=== PATIENT | male | born 1960 | race Caucasian/White ===

== ENCOUNTER 2017-06-13 01:46 | Emergency (ER) | payer MEDICAID ==
[2013-05-15 15:49] VITALS: BMI 24.4
[~2017-06-13 01:46] MED LIST: BACTRIM DS TABL1 TAB PO; COLACE100 MG PO; FLOMAX0.4 MG PO; NORCO 5/325 TAB1 TA1; NORCO 5/325 TAB1 TA1 PO; PHENAZOPYRIDIN200 MG PO; PRILOSEC20 MG PO
[2017-06-13 02:47] LABS: BASOPHILS 0.1 % (0-2); EOSINOPHILS 0.3 % (0-7); HEMATOCRIT 43.2 % (42.0-54.0); HEMOGLOBIN 15.7 g/dL (13.5-17.5); IMMATURE GRANULOCYTES 0.3 % (0-5); LYMPHOCYTES 11.3 % (15-50); MCH 31.6 pg (26.0-34.0); MCHC 36.3 g/dL (31.0-37.0); MCV 86.9 fL (80.0-100.0); MEAN PLATELET VOLUME 9.6 fL (7.4-10.4); MONOCYTES 9.3 % (2-11); NEUTROPHILS 78.7 % (40-80); RBC 4.97 10x6/uL (4.20-6.10); RDW 12.5 % (11.5-14.5); WBC 7.5 10x3/uL (4.8-10.8)
[2017-06-13 02:48] LABS: PLATELET COUNT 177 10x3/uL (130-400)
[2017-06-13 03:02] LABS: ALBUMIN 4.1 g/dL (3.4-5.0); ANION GAP 16.5 mmol/L (8-16); BILIRUBIN - TOTAL 0.68 mg/dL (0.2-1.3); CARBON DIOXIDE 22.2 mmol/L (21.0-32.0); CREATININE - SERUM 1.1 mg/dL (0.6-1.3); POTASSIUM - SERUM 3.7 mmol/L (3.5-5.1); PROTEIN - SERUM 7.6 g/dL (6.4-8.2)
[2017-06-13 03:41] LABS: APPEARANCE HAZY (CLEAR); BACTERIA NONE SEEN /hpf (NONE SEEN); BILIRUBIN NEGATIVE (NEGATIVE); COLOR YELLOW (YELLOW); EPITHELIAL CELLS RARE /hpf (0-5); GLUCOSE NEGATIVE (NEGATIVE); KETONE NEGATIVE (NEGATIVE); NITRITE NEGATIVE (NEGATIVE); PROTEIN TRACE mg/dL (NEGATIVE); RED CELLS - URINE 25-50 /hpf (0-5); SPECIFIC GRAVITY 1.015 (1.005-1.020); URIC ACID CRYSTALS 0-5 /hpf (NONE SEEN); UROBILINOGEN NORMAL (NORMAL); WHITE CELLS - URINE RARE /hpf (0-5)
== END 2017-06-13 04:39 | disposition home or self-care (01) ==
LOC: D.ER 01:46
PROVIDERS: Family Medicine
DX: N20.1 Calculus of ureter (principal)

== ENCOUNTER 2018-02-23 17:33 | Emergency (ER) | payer MEDICAID ==
[~2018-02-23] VITALS: Ht 193 cm; Wt 97.5 kg
[2018-02-23 17:38] VITALS: Ht 193 cm; Wt 97.5 kg
[2018-02-23 18:20] LABS: APPEARANCE CLEAR (CLEAR); BILIRUBIN NEGATIVE (NEGATIVE); COLOR YELLOW (YELLOW); GLUCOSE NEGATIVE (NEGATIVE); KETONE NEGATIVE (NEGATIVE); NITRITE NEGATIVE (NEGATIVE); PROTEIN NEGATIVE (NEGATIVE); UROBILINOGEN NORMAL (NORMAL)
[2018-02-23 18:21] LABS: WHITE CELLS - URINE OCC /hpf (0-5)
[2018-02-23 18:22] LABS: BACTERIA FEW /hpf (NONE SEEN)
[2018-02-23 18:46] LABS: BASOPHILS 0.3 % (0-2); EOSINOPHILS 0.3 % (0-7); HEMATOCRIT 42.4 % (42.0-54.0); HEMOGLOBIN 15.2 g/dL (13.5-17.5); IMMATURE GRANULOCYTES 0.3 % (0-5); LYMPHOCYTES 9.9 % (15-50); MCH 31.6 pg (26.0-34.0); MCHC 35.8 g/dL (31.0-37.0); MCV 88.1 fL (80.0-100.0); MEAN PLATELET VOLUME 9.6 fL (7.4-10.4); MONOCYTES 6.8 % (2-11); NEUTROPHILS 82.4 % (40-80); PLATELET COUNT 178 10x3/uL (130-400); RBC 4.81 10x6/uL (4.20-6.10); RDW 12.5 % (11.5-14.5); WBC 7.5 10x3/uL (4.8-10.8)
[2018-02-23 18:53] LABS: CALC OSMOLALITY 284 mosm/kg (275-300); CARBON DIOXIDE 28.5 mmol/L (21.0-32.0); CHLORIDE - SERUM 106 mmol/L (98-107); GLUCOSE 107 mg/dL (74-106); SODIUM 142 mmol/L (136-145); UREA NITROGEN 18 mg/dL (7-18); eGFR NON AFRICAN AMERICAN 82 mL/min (90-120)
[2018-02-23] MEDS ORDERED: FLOMAX0.4 MG PO (19:03)
[2018-02-23] MEDS ORDERED: HYDROCODON-ACE1 EAC7 PO (19:03)
[2018-02-23 19:29] VITALS: BP 172/107
== END 2018-02-23 19:31 | disposition home or self-care (01) ==
LOC: D.ER 17:33
PROVIDERS: Family Medicine
DX: N20.0 Calculus of kidney (principal); R31.9 Hematuria, unspecified

== ENCOUNTER 2018-06-05 00:46 | Emergency (ER) | payer MEDICAID ==
[~2018-06-05] VITALS: Ht 193 cm; Wt 95.5 kg
[~2018-06-05 00:46] MED LIST changes: +HYDROCODON-ACE1 EAC7 PO
[2018-06-05 00:58] VITALS: Ht 193 cm; Wt 95.5 kg
[2018-06-05] MEDS ORDERED: CATAPRES0.1 MG PO (01:00)
[2018-06-05] MEDS ORDERED: LISINOPRIL10 MG PO (01:00)
[2018-06-05 01:52] LABS: BASOPHILS 0.1 % (0-2); EOSINOPHILS 0.3 % (0-7); HEMATOCRIT 41.5 % (42.0-54.0); HEMOGLOBIN 15.4 g/dL (13.5-17.5); IMMATURE GRANULOCYTES 0.1 % (0-5); LYMPHOCYTES 14.4 % (15-50); MCH 31.8 pg (26.0-34.0); MCHC 37.1 g/dL (31.0-37.0); MCV 85.7 fL (80.0-100.0); MEAN PLATELET VOLUME 9.8 fL (7.4-10.4); MONOCYTES 7.3 % (2-11); NEUTROPHILS 77.8 % (40-80); PLATELET COUNT 151 10x3/uL (130-400); RBC 4.84 10x6/uL (4.20-6.10); RDW 12.1 % (11.5-14.5)
[2018-06-05] MEDS ORDERED: NORCO 10-325 TA1 TAB PO (02:07)
[2018-06-05] MEDS ORDERED: FLOMAX0.4 MG PO (02:07)
[2018-06-05 02:14] LABS: ALBUMIN 4.1 g/dL (3.4-5.0); ALKALINE PHOSPHATASE 73 U/L (46-116); ALT (SGPT) 25 U/L (10-68); BILIRUBIN - TOTAL 0.59 mg/dL (0.2-1.3); CALC OSMOLALITY 283 mosm/kg (275-300); CALCIUM 9.4 mg/dL (8.5-10.1); CARBON DIOXIDE 23.7 mmol/L (21.0-32.0); CHLORIDE - SERUM 103 mmol/L (98-107); GLUCOSE 128 mg/dL (74-106); POTASSIUM - SERUM 3.7 mmol/L (3.5-5.1); PROTEIN - SERUM 7.5 g/dL (6.4-8.2); SODIUM 140 mmol/L (136-145); UREA NITROGEN 20 mg/dL (7-18); eGFR NON AFRICAN AMERICAN 82 mL/min (90-120)
[2018-06-05 07:08] VITALS: BP 147/99
== END 2018-06-05 07:10 | disposition home or self-care (01) ==
LOC: D.ER 00:46
PROVIDERS: Family Medicine
DX: N13.2 Hydronephrosis with renal and ureteral calculous obstruction (principal); I10 Essential (primary) hypertension

== ENCOUNTER 2018-08-13 06:01 | Emergency (ER) | payer MEDICAID ==
[~2018-08-13] VITALS: Ht 193 cm; Wt 97.7 kg
[~2018-08-13 06:01] MED LIST changes: +CATAPRES0.1 MG PO; +LISINOPRIL10 MG PO; +NORCO 10-325 TA1 TAB PO
[2018-08-13 06:12] VITALS: Ht 193 cm; Wt 97.7 kg
[2018-08-13 06:36] LABS: COLOR YELLOW (YELLOW)
[2018-08-13 06:37] LABS: APPEARANCE CLEAR (CLEAR); BILIRUBIN NEGATIVE (NEGATIVE); GLUCOSE NEGATIVE (NEGATIVE); KETONE NEGATIVE (NEGATIVE); NITRITE NEGATIVE (NEGATIVE); PROTEIN NEGATIVE (NEGATIVE); SPECIFIC GRAVITY 1.015 (1.005-1.020); UROBILINOGEN NORMAL (NORMAL); WHITE CELLS - URINE NSEEN /hpf (0-5)
[2018-08-13] MEDS ORDERED: FLOMAX0.4 MG PO (07:41)
[2018-08-13 08:07] VITALS: BP 142/60
== END 2018-08-13 08:08 | disposition home or self-care (01) ==
LOC: D.ER 06:01
PROVIDERS: Family Medicine
DX: N20.0 Calculus of kidney (principal); N20.1 Calculus of ureter; I10 Essential (primary) hypertension

== ENCOUNTER 2018-10-20 10:47 | Emergency (ER) | payer MEDICAID ==
[~2018-10-20] VITALS: Ht 193 cm; Wt 97.7 kg
[2018-10-20 11:08] VITALS: Ht 193 cm; Wt 97.7 kg
[2018-10-20] MEDS ORDERED: COZAAR25 MG PO (11:49)
[2018-10-20] MEDS ORDERED: KRILL OIL 1,001 EAC1 PO (11:51)
[2018-10-20] MEDS ORDERED: IBUPROFEN600 MG PO (11:51)
[2018-10-20 11:54] LABS: HEMATOCRIT 42.5 % (42.0-54.0); HEMOGLOBIN 15.5 g/dL (13.5-17.5); LYMPHOCYTES 18.7 % (15-50); MCH 31.4 pg (26.0-34.0); MCHC 36.5 g/dL (31.0-37.0); MEAN PLATELET VOLUME 9.3 fL (7.4-10.4); NEUTROPHILS 73.7 % (40-80); RBC 4.94 10x6/uL (4.20-6.10); RDW 12.6 % (11.5-14.5); WBC 5.7 10x3/uL (4.8-10.8)
[2018-10-20] MEDS ORDERED: BAYER CHEWABLE81 MG PO (11:54)
[2018-10-20 11:58] LABS: PLATELET COUNT 192 10x3/uL (130-400)
[2018-10-20] MEDS ORDERED: LIDOCAINE50 GM TOPICAL (13:16)
[2018-10-20] MEDS ORDERED: TORADOL10 MG PO (13:16)
[2018-10-20 13:40] VITALS: BP 146/98
== END 2018-10-20 13:36 | disposition home or self-care (01) ==
LOC: D.ER 10:47
PROVIDERS: Emergency Medicine
DX: K64.5 Perianal venous thrombosis (principal)

== ENCOUNTER 2019-09-14 07:18 | Emergency (ER) | payer OTHER ==
[~2019-09-14] VITALS: Ht 193 cm; Wt 97.7 kg
[~2019-09-14 07:18] MED LIST changes: +BAYER CHEWABLE81 MG PO; +COZAAR25 MG PO; +IBUPROFEN600 MG PO; +KRILL OIL 1,001 EAC1 PO; +LIDOCAINE50 GM TOPICAL; +TORADOL10 MG PO
[2019-09-14 07:24] VITALS: Ht 193 cm; Wt 97.7 kg
[2019-09-14] MEDS ORDERED: METOPROLOL TART25 MG PO (07:26)
[2019-09-14 08:43] LABS: APPEARANCE CLOUDY (CLEAR); BACTERIA FEW /hpf (NEGATIVE); BILIRUBIN NEGATIVE (NEGATIVE); COLOR DK YELLOW (YELLOW); EPITHELIAL CELLS 0-5 /hpf (0-5); GLUCOSE NEGATIVE (NEGATIVE); KETONE SMALL mg/dL (NEGATIVE); MUCUS <1+ /lpf (NONE SEEN); NITRITE NEGATIVE (NEGATIVE); PROTEIN TRACE mg/dL (NEGATIVE); RED CELLS - URINE 25-50 /hpf (0-5); WHITE CELLS - URINE RARE /hpf (NEGATIVE)
[2019-09-14] MEDS ORDERED: HYDROCODON-ACE1 EAC2 PO (09:16)
[2019-09-14] MEDS ORDERED: FLOMAX0.4 MG PO (09:16)
[2019-09-14 10:04] VITALS: BP 135/87
[2019-09-14] MEDS ORDERED: TORADOL10 MG PO (15:01)
== END 2019-09-14 10:05 | disposition home or self-care (01) ==
LOC: D.ER 07:18
PROVIDERS: Emergency Medicine
DX: R10.9 Unspecified abdominal pain (principal); N23 Unspecified renal colic; I10 Essential (primary) hypertension; Z87.442 Personal history of urinary calculi

== ENCOUNTER 2019-09-14 13:34 | Emergency (ER) | payer OTHER ==
[~2019-09-14] VITALS: Ht 193 cm; Wt 97.7 kg
[~2019-09-14 13:34] MED LIST changes: +HYDROCODON-ACE1 EAC2 PO; +METOPROLOL TART25 MG PO
[2019-09-14 13:39] VITALS: Ht 193 cm; Wt 97.7 kg
[2019-09-14] MEDS ORDERED: TORADOL10 MG PO (15:01)
[2019-09-14 15:10] VITALS: BP 139/83
== END 2019-09-14 15:11 | disposition home or self-care (01) ==
LOC: D.ER 13:34
DX: N20.0 Calculus of kidney (principal); R10.9 Unspecified abdominal pain; I10 Essential (primary) hypertension

== ENCOUNTER 2021-03-13 11:02 | Emergency (ER) | payer OTHER ==
[~2021-03-13] VITALS: Ht 193 cm; Wt 95.5 kg
[2021-03-13 11:10] VITALS: Ht 193 cm; Wt 95.5 kg
[2021-03-13 11:15] VITALS: BP 192/96
[2021-03-13 11:56] LABS: BASOPHILS 0.3 % (0-2); EOSINOPHILS 0.1 % (0-7); HEMATOCRIT 41.7 % (42.0-54.0); HEMOGLOBIN 14.6 g/dL (13.5-17.5); LYMPHOCYTES 5.3 % (15-50); MCH 31.1 pg (26.0-34.0); MCV 88.9 fL (80.0-100.0); MEAN PLATELET VOLUME 7.6 fL (7.4-10.4); MONOCYTES 5.7 % (2-11); NEUTROPHILS 88.6 % (40-80); PLATELET COUNT 171 10x3/uL (130-400); RBC 4.69 10x6/uL (4.20-6.10); RDW 13.2 % (11.5-14.5); WBC 9.3 10x3/uL (4.8-10.8)
[2021-03-13 11:58] LABS: ANION GAP 16.1 mmol/L (8-16); CALCIUM 8.7 mg/dL (8.5-10.1); CARBON DIOXIDE 24.5 mmol/L (21.0-32.0); CREATININE - SERUM 1.1 mg/dL (0.6-1.3); POTASSIUM - SERUM 3.6 mmol/L (3.5-5.1)
[2021-03-13 12:04] LABS: ALBUMIN 4.6 g/dL (3.4-5.0); BILIRUBIN - TOTAL 1.08 mg/dL (0.2-1.3); PROTEIN - SERUM 7.9 g/dL (6.4-8.2)
[2021-03-13] MEDS ORDERED: ZOFRAN ODT4 MG/UDTAB PO (12:56)
[2021-03-13] MEDS ORDERED: IBUPROFEN800 MG PO (12:56)
[2021-03-13] MEDS ORDERED: HYDROCODON-ACE1 EAC7 PO (12:56)
[2021-03-13 13:08] LABS: BACTERIA FEW HPF (<MOD); BILIRUBIN NEGATIVE (NEGATIVE); KETONE 2+ mg/dL (< 1+); NITRITE NEGATIVE (NEGATIVE); PH 6.5 (5.0-8.0); UROBILINOGEN NORMAL mg/dL (< 2); WHITE CELLS - URINE 8 HPF (0-1)
== END 2021-03-13 13:10 | disposition home or self-care (01) ==
LOC: D.ER 11:02
PROVIDERS: Emergency Medicine
DX: N23 Unspecified renal colic (principal); I10 Essential (primary) hypertension